=== PATIENT | male | born 1945 | race Two or more races ===

== ENCOUNTER 2022-12-24 11:38 | Outpatient (REF) | payer MEDICARE, SELFPAY ==
--- NOTE | ~2022-12-24 | XR_ITS ---
EXAMINATION: XR HAND, RIGHT CLINICAL INFORMATION: Pain and swelling base of thumb area. No trauma. COMPARISON: None available. TECHNIQUE: PA, lateral, and oblique views of the right hand. FINDINGS: Visualized portion of the distal radius and ulna demonstrate no fracture. Small cystic focus within the distal ulna. Carpal rows are maintained. No carpal bone fracture. Mild degenerative changes of the first carpal metacarpal joint. No metacarpal or phalangeal fracture. Minimal degenerative changes of scattered IP joints. No focal soft tissue swelling of the hand. XR/XR hand RT min 3V IMPRESSION: Mild degenerative changes of the first carpometacarpal joint. No fracture.
== END 2022-12-24 11:39 | disposition home or self-care (01) ==
LOC: HO.HMGCX 11:38
PROVIDERS: PCP Internal Medicine; Visit Provider Physician Assistant Medical
DX: M79.644 Pain in right finger(s) (principal)
CPT/HCPCS: 73130